=== PATIENT | male | born 1990 | race Caucasian/White ===

== ENCOUNTER 2017-06-12 16:31 | Emergency (ER) | payer MEDICAID ==
[2017-06-12] MEDS ORDERED: ACETAMINOPHEN 325 MG TAB PO ONE (17:37)
[2017-06-12] MEDS ORDERED: IBUPROFEN 600 MG TABLET PO ONE (17:37)
--- NOTE | 2017-06-12 17:40 | Emergency Department Record ---
History of Present Illness - General Chief Complaint: Headache Migraine Stated Complaint: HEADACHE/COUGH Time Seen by Provider: 06/12/17 17:33 Source: Patient Mode of Arrival: Ambulatory Limitations: No limitations - History of Present Illness Initial Comments: The patient is here due to not feeling well for 2-3 days. It started with a dry cough and now the patient has extreme body aches, a low grade fever, mild ST, runny nose, CASTILLO when he coughs and malaise. He did not get a flu shot this year. The patient last had Tylenol 4 hours ago and denies any neck or back pain. The patient has had the fever for just one day. MD Complaint: Headache Onset/Timin -: Days(s) Onset Description: Gradual Improves With: Nothing Worsens With: Exertion/activity Other Symptoms: Cough, Malaise Treatments Prior to Arrival: Acetaminophen - Related Data Home Medications Medication Instructions Recorded Confirmed Last Taken Vortioxetine Hydrobromide 10 mg PO ASDIR 06/12/17 06/12/17 06/12/17 [Trintellix] Previous Rx's Medication Instructions Recorded Oseltamivir Phosphate [Tamiflu] 75 mg PO BID #10 capsule 06/12/17 Allergies Allergy/AdvReac Type Severity Reaction Status Date / Time erythromycin base Allergy HIVES Verified 06/12/17 17:24 Travel Screening - Travel/Exposure Within Last 30 Days Have you traveled within the last 30 days?: No - Travel/Exposure Within Last Year Have you traveled outside the [place] in the last year?: No - Additonal Travel Details Have you been exposed to anyone with a communicable illness?: No - Travel Symptoms Symptom Screening: None Review of Systems Constitutional: Reports: Chills, Fever, Malaise Eyes: Denies: Eye discharge ENT: Reports: Congestion Respiratory: Reports: Cough. Denies: Dyspnea Past Medical History - SOCIAL HISTORY Smoking Status: Former smoker Alcohol Use: Occasional Drug Use: None - RESPIRATORY Hx Respiratory Disorders: No - CARDIOVASCULAR Hx Cardio Disorders: Yes Hx Hypertension: Yes Comment:: High cholestrol - NEURO Hx Neuro Disorders: No - GI Hx GI Disorders: Yes Hx Reflux: Yes - Hx Genitourinary Disorders: No - ENDOCRINE Hx Endocrine Disorders: No - MUSCULOSKELETAL Hx Musculoskeletal Disorders: No - PSYCH Hx Psych Problems: Yes Hx Anxiety: Yes - HEMATOLOGY/ONCOLOGY Hx Hematology/Oncology Disorders: No Family Medical History Any Significant Family History?: Yes Hx HTN: Father, Mother Physical Exam - General General Appearance: Alert, Oriented x3, Cooperative, No acute distress - Head Head exam: Atraumatic, Normocephalic, Normal inspection - Eye Eye exam: Normal appearance, PERRL, Conjunctival injection (very mild.), EOMI - ENT ENT exam: Normal exam, Mucous membranes moist, Normal external ear exam, Normal orophraynx, TM's normal bilaterally Throat exam: Tonsillar erythema (mild.). negative: Normal inspection, Tonsillomegaly, Tonsillar exudate - Neck Neck exam: Normal inspection, Full ROM. negative: Lymphadenopathy, Meningismus (The neck is very supple.), Tenderness - Respiratory Respiratory exam: Normal lung sounds bilaterally. negative: Respiratory distress - Cardiovascular Cardiovascular Exam: Regular rate, Normal rhythm, Normal heart sounds - Extremities Extremities exam: Normal inspection, Full ROM, Normal capillary refill. negative: Tenderness - Neurological Neurological exam: Alert, Normal gait, Other (Neg Kernigs and Brudsinski's reflexes.). negative: Abnormal gait, Motor sensory deficit Course Vital Signs 06/12/17 17:27 Temperature 101.3 F H Pulse Rate 110 H Respiratory 18 Rate Blood Pressure 132/76 Pulse Ox 98 - Reevaluation(s) Reevaluation #1: I did discuss the positive flu test with the patient and the need for Tamiflu. 06/12/17 18:02 Medical Decision Making - Data Complexity MDM Data: Labs Ordered and/or Reviewed (Flu A Pos.), X-Ray Ordered and/or Reviewed - Radiology Data Radiology results: Report reviewed (CXR: Neg.) Disposition Disposition: Discharge Clinical Impression: Influenza A Disposition: Home, Self-Care Condition: (2) Stable Instructions: Influenza (ED) Additional Instructions: Please drink plenty of fluids and use Tylenol and Motrin for pain. Please take the Tamiflu as directed and use an OTC cough medicine. Please see your PCP if not better in 2-3 days. Return to the ER for any worsening cough, high fever > 103, or any trouble breathing or shortness of breath. Prescriptions: Oseltamivir Phosphate [Tamiflu] 75 mg PO BID #10 capsule Forms: Patient Portal Access Time of Disposition: 18:05 Quality - Quality Measures Quality Measures: N/A - Blood Pressure Screening View Details: Yes Does Patient Have Any of the Following: No Blood Pressure Classification: Pre-Hypertensive BP Reading Systolic Measurement: 137 Diastolic Measurement: 71 Screening for High Blood Pressure: < Pre-Hypertensive BP, F/U Documented > [ [id number]] Pre-Hypertensive Follow-up Interventions: Referral to alternative/primary care provider.
[2017-06-12 17:58] LABS: INFLUENZA A POSITIVE (NEGATIVE); INFLUENZA B NEGATIVE (NEGATIVE)
--- NOTE | 2017-06-13 12:22 | RADIOLOGY REPORT ---
DATE: 06/12/2017. EXAM: TWO-VIEW, CHEST. HISTORY: Difficulty breathing. TECHNIQUE: Frontal and lateral views of the chest were performed. FINDINGS: Heart size is normal. Lung parrish are clear. Osseous structures are normal. IMPRESSION: NEGATIVE CHEST EXAMINATION. JOB NUMBER: [id number] MTDD
== END 2017-06-12 18:14 | disposition home or self-care (01) ==
LOC: ER 16:31
DX: J10.1 Influenza due to other identified influenza virus with other respiratory manifestations (principal); R06.00 Dyspnea, unspecified; I10 Essential (primary) hypertension; Z87.891 Personal history of nicotine dependence
CPT/HCPCS: 71046; 87400; 99283